=== PATIENT | male | born 1965 | race Caucasian/White ===

== ENCOUNTER 2025-02-15 06:30 | Observation (INO) | payer BC, SELFPAY ==
[2025-02-15 02:50] VITALS: BP 118/73; BP 135/77
[2025-02-15 03:04] VITALS: BMI 28.0
--- NOTE | 2025-02-15 03:14 | ED.GENMED ---
History of Present Illness
General
Chief Complaint: Abdominal Pain
Source: patient
Exam Limitations: none
Time Seen by Provider: 02/15/25 03:07
History of Present Illness
History of Present Illness:
See MDM
Past History
Past History
ED Past Medical History: None
ED Past Surgical History: Other (inguinal hernia)
Social History
Personal:
Living: with family
Employment: Employed
Phy Exam
Physical Exam
Physical Exam:
See MDM
Course
Orders/Labs/Results
Orders:
Orders
02/15/25 03:12
CT Abd/pelvis W Iv Cont Urgent
Comment:
Reason For Exam: mid abd pain, vomiting
0.9% Sodium Chloride 1000 ml [Nss] 1,000 ml IV BOLUS
Morphine Sulfate 4 mg IV NOW STA
02/15/25 03:13
Electrocardiogram (*1) Urgent
Reason for Study: Abdominal Pain
EKG- Treatment ONCE
02/15/25 03:20
Complete Blood Count/With Diff Urgent
Comprehensive Metabolic Panel Urgent
Lipase Urgent
Troponin I Urgent
02/15/25 03:28
Acetaminophen 1000MG/100Ml [Ofirmev] 1,000 mg in 100 ml IV ONCE
Acetaminophen IV Indication:: ED Narcotic Naive Pt-ONCE
02/15/25 03:29
Acetaminophen 1000MG/100Ml [Ofirmev] 1,000 mg in 100 ml .ROUTE .STK-MED
02/15/25 04:29
0.9% Sodium Chloride 1000 ml [Nss] 1,000 ml IV BOLUS
02/15/25 05:51
Morphine Sulfate 4 mg IV NOW STA
Abnormal Lab Results
02/15/25
03:20
RBC 4.22 L 10^6/uL
(4.70-6.10)
MCH 32.2 H pg
(27.0-31.0)
Absolute Lymphs (auto) 0.2 L 10^3/uL
(1.2-3.4)
Neutrophils % 93.2 H %
(42.2-75.2)
Lymphocytes % 3.5 L %
(20.5-51.1)
Monocytes % 1.3 L %
(1.7-9.3)
Glucose 106 H mg/dl
(70-99)
02/15/25 03:20
02/15/25 03:20
Vital Signs
Initial and Last Documented VS:
Initial Vital Signs
Temp Pulse Resp BP Pulse Ox
98.3 F 124 14 118/73 100
02/15/25 02:50 02/15/25 02:50 02/15/25 02:50 02/15/25 02:50 02/15/25 02:50
Last Documented Vital Signs
Temp Pulse Resp BP Pulse Ox
98.7 F 118 14 135/77 100
02/15/25 05:28 02/15/25 02:50 02/15/25 02:50 02/15/25 02:50 02/15/25 03:16
MDM/Problems Addressed
Differential Diagnosis Includes:
Note:
CHIEF COMPLAINT(S)
Abdominal pain, nausea, vomiting, diarrhea, and generalized weakness.
HISTORY OF PRESENT ILLNESS
The patient is a 59-year-old male who presents with abdominal pain, nausea, vomiting, diarrhea, and general malaise. The symptoms began two days ago after consuming two slices of pizza, which the patient noted contained garlic, typically a trigger
for his symptoms. He describes experiencing 'sulfury gas' the following morning, which did not fully resolve with simethicone use, a treatment previously approved by his doctor.
At approximately 5:00 PM yesterday, the patient notes a worsening of his gas pains and developed nausea and diarrhea both at work and at home. He reports several episodes of diarrhea, followed by shaking chills, alternating hot and cold sensations,
and severe vomiting. The patient states that oral intake has been difficult, mentioning that fluids are not staying down. He reported vomiting approximately five times.
The patient describes the pain as diffuse across the abdomen and radiating to his back, and he notes a chalky sensation on his tongue. He denies recent fever, though an evaluation for dehydration and electrolyte imbalance is warranted due to his
presentation.
PAST SURGICAL HISTORY
The patient reports a hernia repair approximately 20 years ago. He also underwent an endoscopy five years ago that revealed an adenoma, which was removed.
MEDICATIONS
The patient has been on omeprazole since August and notes it has generally been effective, although recent symptoms have been atypical.
PHYSICAL EXAM
General: Alert, no acute distress.
Skin: Warm, dry.
Head: Normocephalic, atraumatic
Neck: Appears supple, trachea midline.
Eyes, Ears, Nose, Mouth, and Throat: Oral mucosa dry
Cardiovascular: No signs of cyanosis. Tachycardia
Respiratory: Respirations are non-labored.
Abdomen: Non-distended. Generalized tenderness without rebound
Musculoskeletal: No deformities
Neurological: No focal neurological deficit observed.
Psychiatric: Anxious and tearful
PLAN
1. Administer intravenous fluids to address dehydration.
2. Administer pain management and antiemetic medications to control symptoms.
3. Conduct a CT scan of the abdomen to rule out any other underlying abnormalities.
4. Evaluate for the need for further gastroenterological consultation given history and current presentation.
DIFFERENTIAL DIAGNOSIS
The Differential Diagnosis includes, in no particular order and is not limited to:
1. Gastroenteritis
2. Small bowel obstruction
3. Peptic ulcer disease
4. Gallbladder disease
5. Pancreatitis
6. Gastric ulcer
7. Colitis
8. Irritable bowel syndrome (IBS)
9. Gastroesophageal reflux disease (GERD)
10. Diverticulitis
02/15/25 - 03:28
Patient reassessed and found to be febrile. Initiated Tylenol IV administration due to poor tolerance of oral intake.
My independent EKG interpretation is:
- Rhythm: Sinus tachycardia
- Heart Rate: 111 beats per minute
- [place]: Normal
- Time of EKG: Not specified
- Notable Intervals: Not specified
- Abnormalities Observed: None mentioned
SUMMARY OF ENCOUNTER
The patient, a 59-year-old male, was seen in the emergency department presenting with abdominal pain, nausea, vomiting, diarrhea, and generalized weakness. The symptoms started two days ago after consuming pizza with garlic, a known trigger for him.
Initial management included intravenous fluids, pain management, and antiemetic medications. A CT scan revealed enteritis. Despite treatment, the patient remained uncomfortable, tachycardic, and clinically dehydrated, with ongoing difficulty
tolerating oral intake.
DISPOSITION
Admit for intravenous fluids and pain control.
MANAGEMENT OF THE PATIENTS CARE WAS DISCUSSED WITH
Discussed the case with hospitalists for the admission plan.
INDEPENDENT REVIEW OF LABS AND INTERPRETATION OF TESTS
My independent CT scan interpretation is consistent with enteritis.
MEDICATION RECONCILIATION
Administered pain management and antiemetic medications. Provided intravenous fluids for dehydration.
MEDICAL DECISION MAKING
- Number and Complexity of Problems Addressed: Chronic conditions affecting care: history of hernia repair and adenoma removal. Differential diagnosis includes gastroenteritis, small bowel obstruction, peptic ulcer disease, gallbladder disease,
pancreatitis, gastric ulcer, colitis, irritable bowel syndrome (IBS), gastroesophageal reflux disease (GERD), and diverticulitis.
- Data:
*Category 1:*
Non-emergency department records reviewed, if applicable. External records from the patients prior medical history such as endoscopy details and current prescription of omeprazole were reviewed.
*Category 2:*
My independent interpretation of the CT scan shows findings consistent with enteritis.
*Category 3:*
Discussion of management with hospitalists for further care and admission.
- Risk:
Admission was deemed necessary due to the patients discomfort, tachycardia, clinical dehydration, and inability to tolerate oral intake safely; outpatient management was not appropriate.
DIAGNOSIS
Enteritis, ICD-10: K52.9
*Pulse Oximetry
SaO2: 100
Oxygen Mode of Delivery: Room air
Patient hypoxic: no
*Critical Care Note
Total Time (30-74mins, 75-104mins- exclusive of procedures): Not Applicable
ED Attending Note
-
Portions of this chart may have been created with voice recognition software.� Occasional wrong word or��sound alike� substitutions may have occurred due to the inherent limitations of voice recognition software.
Discharge Plan
Departure
Patient Disposition: Admit
Date of Disposition: 02/15/25
Time of Disposition: 05:55
Admit to: Med/Surg
Presentation/result/management discussed w/ accepting MD/DO: Hospitalist
Discharge Problem:
Enteritis, Dehydration
Referrals:
Sammy Álvarez MD [Family Provider, Family Practice]
Interventions
Interventions:
*Risk Screen - Suicide Last Done: 02/15/25 02:50
*General Assessment Last Done: 02/15/25 02:50
*Neglect/Abuse Screening Last Done: 02/15/25 02:50
MT-Drfaqu-Cygxjjxhwz Assessment Last Done: 02/15/25 03:37
Discharge Date and Time
Print Language: SWEDISH
[2025-02-15] MEDS: MORPHINE SULFATE 4 MG IV ×2 (03:19→05:59)
[2025-02-15] MEDS: NSS 1000 IV ×2 (03:19→04:46)
[2025-02-15 03:43] LABS: Hematocrit 39.0 % (39.0-52.0); Hemoglobin 13.6 g/dL (13.0-18.0); Mean Corp Hgb Conc. 34.9 g/dL (33.0-37.0); Mean Corpuscular Volume 92.4 fL (80.0-94.0); Nucleated Red Blood Cells % 0 % (-); Platelet Count 236 10^3/uL (130-400); Red Cell Dist. Width 13.0 % (11.5-14.5)
[2025-02-15] MEDS: OFIRMEV 100 IV (03:49)
[2025-02-15 03:59] LABS: ALT (SGPT) 26 U/L (0-50); AST (SGOT) 36 U/L (17-59); Albumin 4.8 g/dl (3.5-5.0); Alkaline Phosphatase 44 U/L (38-126); Blood Urea Nitrogen 19 mg/dl (9-20); Calcium 9.9 mg/dl (8.4-10.2); Carbon Dioxide 24 mmol/L (22-30); Chloride 106 mmol/L (98-107); Estimated Creatinine Clearance 95 ml/min; Glucose 106 mg/dl (70-99); Lipase 99 U/L (23-300); Potassium 3.6 mmol/L (3.5-5.1); Sodium 141 mmol/L (135-145); Total Protein 7.4 g/dl (6.3-8.2); eGFR > 60.00
[2025-02-15 04:10] LABS: Troponin I < 0.012 ng/ml
--- NOTE | 2025-02-15 05:58 | HPS.HSE ---
Addendum entered and electronically signed by Khadar Hernandez MD 02/23/25 18:59:
Allergies
Allergy/AdvReac Type Severity Reaction Status Date / Time
clavulanic acid Allergy Unknown Diahrrhea Verified 02/15/25 13:22
oxycodone Allergy itchy, rash Verified 02/15/25 13:22
environmental Allergy itchy Uncoded 02/15/25 13:22
eyes,
sneezing
Home Medications
alfuzosin 10 mg tablet,extended release 24 hr 10 mg PO DAILY Urinary Issue 02/15/25
omeprazole 20 mg tablet,delayed release 20 mg PO DAILY Gastrointestinal Issue 02/15/25
pravastatin 20 mg tablet 20 mg PO DAILY High Cholesterol 02/15/25
simethicone 80 mg chewable tablet 80 mg PO DAILYPRN PRN gas pains 02/15/25
therapeutic multivitamin 1 tab PO DAILY Supplement 02/15/25
tirzepatide (weight loss) 5 mg/0.5 mL subcutaneous pen injector (Zepbound) 5 mg SC SA endocrine 02/15/25
Original Note:
Family Physician
-
Family Physician: Sammy Álvarez
Chief Complaint
-
Abdominal pain
History of Present Illness
This is a 59-year-old with past medical history significant for GERD, hyperlipidemia, sleep apnea, status post hernia repair presenting to the emergency department with episode of abdominal pain, nausea, vomiting, diarrhea, and general malaise.
Patient reported to ER was in usual state of health yesterday. At the time he had some pizza with [place] for breakfast. He reports that since he has been on 7 pound he does have gas especially with gadolinium containing foods. He thought he was
having some gas pains and he took simethicone as prescribed by his PMD. However reports that he truly did not have any much improvement. Was able to go walk later on had some salad. His symptoms got worse and he upon returning home felt sick. He
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 He decided having frequent episodes of watery diarrhea. He said he went to the
bathroom several times and that by 2 PM his pain was unbearable. He felt that he was having chills. He tried to drink something and he developed nausea vomiting that was nonbloody and nonbilious.
He denies any known sick contacts. He has no new medication changes. He denies EtOH. He reports feeling intermittently hot and cold. He currently has severe vomiting and then came to the emergency department.
In the ED his blood pressure was 135/77, temperature was 90.7, pulse rate was 120 was satting 100% on room air. ECG showed sinus tachycardia at a rate of [address] or T wave changes. Troponin was negative. His CBC was completely
unremarkable. Electrolytes BUN and creatinine were normal. LFTs were normal. Lipase was normal.
CT of the abdomen pelvis shows dilated loops of small bowel without any transition points, diffuse thickening of the colon all of which are consistent with acute enteritis.
Medical History
Past Medical History
Past Medical History: Reports Other
Additional Past Medical History:
Hyperlipidemia
GERD
Sleep apnea on CPAP
Squamous cell carcinoma
Lyme disease
Past Surgical History: Reports Other
Additional Past Surgical History:
Status post left hernia repair
Left knee arthroscopy
Right knee arthroscopy with partial medial meniscectomy
Mohs surgery for squamous cell
Social History
Tobacco: Non-smoker
Alcohol: None
Drug: None
Personal:
Living: With Family
Family History
Family History: Not pertinent
Allergies / Home Medications
Allergies reflects when Allergies were last updated in [employer].
Home Medications with original date entered in [facility] [employer]
Allergy/Medication List:
Allergies
Allergy/AdvReac Type Severity Reaction Status Date / Time
clavulanic acid Allergy Unknown Diahrrhea Verified 02/15/25 02:49
oxycodone Allergy itchy, rash Verified 02/15/25 02:49
environmental Allergy itchy Uncoded 02/15/25 02:49
eyes,
sneezing
Review of Systems
-
Constitutional: Reports No Symptoms
EENT: Reports No Symptoms
Respiratory: Reports No Symptoms
Cardiac: Reports No Symptoms
Abdomen/GI: Reports Abdominal Pain, Nausea, Vomiting and Diarrhea
: Reports No Symptoms
Musculoskeletal: Reports No Symptoms
Skin: Reports No Symptoms
Neurological: Reports No Symptoms
Endocrine: Reports No Symptoms
Hematologic/Lymphatic: Reports No Symptoms
Psych: Reports No Symptoms
Physical Exam
Vital Signs
Vital Signs
Temp Pulse Resp BP Pulse Ox
98.7 F 118 14 135/77 100
02/15/25 05:28 02/15/25 02:50 02/15/25 02:50 02/15/25 02:50 02/15/25 03:16
Physical Exam
General: Well Developed, Well Nourished and No Apparent Distress
HEENT: NormoCephalic, Moist mucous membranes and Atraumatic
Respiratory: Clear
Cardiac: S1/S2 and Regular Rhythm; No Murmur or Rub
GI: Soft, Non Tender, Non Distended and Normal Bowel Sounds; No Organomegaly
Rectal: Deferred by Provider
Musculoskeletal: No Clubbing, No Cyanosis and No Edema
Skin: No Rash
Neuro: Nonfocal/grossly intact
Laboratory Results
-
02/15/25 03:20
02/15/25 03:20
Laboratory Results
Total Bilirubin 1.2 mg/dl (0.2-1.3) 02/15/25 03:20
AST 36 U/L (17-59) 02/15/25 03:20
ALT 26 U/L (0-50) 02/15/25 03:20
Alkaline Phosphatase 44 U/L (38-126) 02/15/25 03:20
Troponin I < 0.012 ng/ml 02/15/25 03:20
Lipase 99 U/L (23-300) 02/15/25 03:20
Data Reviewed
-
CT Scan: Report Reviewed by me
Medical Tests (Nuc Med, Echo, EKG etc): Image Personally Visualized and interpreted
Lab Data: Labs Reviewed by me
Impression/Plan
-
IMPRESSION:
59-year-old on Zepbound who has history of GERD, sleep apnea on CPAP presenting to the emergency department with approximately 1 day history of nausea vomiting diarrhea and abdominal pain.
His exam is fairly benign. His labs are unremarkable. CT shows enteritis. The clinical picture with onset of diarrhea abdominal pain then followed by nausea vomiting is consistent with a gastroenteritis. Likely of viral etiology. No recent
antibiotic use. No recent travels or sick contacts.
PLAN:
Acute gastroenteritis
- Admit to MedSurg observation
-Clear liquid diet for now
-Continue with pain control & antiemetics
- IV fluids with LR at 100 mL/h
-Continue with PPI, statin and BPH
- stool cx, stool WBCs and norovirus
CPAP HS
- use home device
DVT prophylaxis with SCDs
Code status - Full Code
[2025-02-15 06:00] VITALS: BP 110/63
--- NOTE | 2025-02-15 06:04 | EDRN ---
Patient into the restroom to have bowl movement and back in bed resting comfortably.
[2025-02-15 06:51] VITALS: BP 136/81
--- NOTE | 2025-02-15 08:57 | CM ---
Patient seen at bedside in ED. Patient is OBS and CM reviewed form and signed form placed on chart. Patient states that he lives with his in a 2 story home. Patient has an APAP and he states that he is driving and independent. Patient PCP is
Dr. Álvarez and he uses the pharmacy at [facility] in [place]. Patient stated that he just wants to feel better. Patient plan is home with no needs when medically appropriate. CM will continue to follow for discharge planning needs.
Plan; home with family supports.
[2025-02-15] MEDS: LR 1000 IV ×2 (10:58→20:35)
[2025-02-15] MEDS: TORADOL 10 MG IV ×2 (10:59→17:00)
[2025-02-15] MEDS: ZOFRAN 4 MG IV (11:00)
[2025-02-15] MEDS: FLOMAX 0.4 MG PO (11:00)
--- NOTE | 2025-02-15 11:00 | W.PN.HOSP.TC ---
Today's Communication/Plan
-
Clear liquid diet
IV hydration
Antiemetics.
Check lipase
Follow CBC/CMP in a.m.
Assessment / Plan
Assessment / Plan
Impression/plan:
59-year-old on Zepbound who has history of GERD, sleep apnea on CPAP presenting to the emergency department with approximately 1 day history of nausea vomiting diarrhea and abdominal pain.
His exam is fairly benign. His labs are unremarkable. CT shows enteritis. The clinical picture with onset of diarrhea abdominal pain then followed by nausea vomiting is consistent with a gastroenteritis. Likely of viral etiology. No recent
antibiotic use. No recent travels or sick contacts.
PLAN:
Acute gastroenteritis
Patient is on GLP-1 agonist for about 6 months with reported 50 pound weight loss and minimal side effects. The GLP-1 agonist is the primary culprit over this presentation.
- Admit to MedSurg observation
-Clear liquid diet for now
-Continue with pain control & antiemetics
- IV fluids with LR at 100 mL/h
-Continue with PPI, statin and BPH
- stool cx, stool WBCs and norovirus
- Check lipase
CPAP HS
- use home device
DVT prophylaxis with SCDs
Code status - Full Code
Anticipated Discharge: Within 24 hours
Subjective/Interval History
-
Date of Service: February 15, 2025
Objective Data
-
Labs:
Laboratory Results
02/15/25
03:20
WBC 6.2
Hgb 13.6
Hct 39.0
Plt Count 236
Sodium 141
Potassium 3.6
Chloride 106
Carbon Dioxide 24
BUN 19
Creatinine 0.8
Glucose 106 H
Calcium 9.9
Total Bilirubin 1.2
AST 36
ALT 26
Alkaline Phosphatase 44
Vital Signs:
Vital Signs
Temp Pulse Resp BP Pulse Ox
98.6 F 82 20 136/81 99
02/15/25 06:51 02/15/25 06:51 02/15/25 06:51 02/15/25 06:51 02/15/25 06:51
Physical Exam
-
General: Well Developed and No Apparent Distress
HEENT: Normocephalic, Atraumatic and Moist Mucous Membranes
Respiratory: Clear to Auscultation
Cardiac: Regular Rhythm and S1/S2; Negative Murmur, Rub or Gallop
GI: Soft, Nontender, Nondistended and Normal Bowel Sounds; Negative Organomegaly
Rectal: Deferred by Provider
Musculoskeletal: No Clubbing, No Cyanosis and No Edema
Skin: Negative Rash
Neuro: Nonfocal/Grossly Intact
[2025-02-15 11:11] VITALS: BP 111/64
--- NOTE | 2025-02-15 11:44 | EDRN ---
this RN called the receiving unit and notified them that paper report was going to be tubed up
[2025-02-15 12:00] VITALS: BMI 27.5
--- NOTE | 2025-02-15 12:00 | PTCARENOTE ---
patient arrived to floor from ER via stretcher. reports pain level 4/10 t/o abdomen, denies need for analgesia, reports diarrhea since yesterday at 1600. denies nausea at present, eager to try some clear liquids, independent from stretcher to bed,
vss, will continue to monitor.
[2025-02-15 15:56] VITALS: BP 95/53
[2025-02-15] MEDS: PRAVACHOL 20 MG PO (17:02)
--- NOTE | 2025-02-15 19:32 | PTCARENOTE ---
PRN Toradol effective for pain, will continue to monitor.
[2025-02-15 23:32] VITALS: BP 102/58
[2025-02-16] MEDS: LR 1000 IV ×2 (04:39→15:18)
[2025-02-16] MEDS: TORADOL 10 MG IV (04:48)
[2025-02-16 06:37] LABS: Hematocrit 33.5 % (39.0-52.0); Hemoglobin 11.4 g/dL (13.0-18.0); Mean Corp Hgb Conc. 34.0 g/dL (33.0-37.0); Mean Corpuscular Volume 95.2 fL (80.0-94.0); Nucleated Red Blood Cells % 0 % (-); Platelet Count 163 10^3/uL (130-400); Red Cell Dist. Width 13.5 % (11.5-14.5)
[2025-02-16 07:04] LABS: ALT (SGPT) 523 U/L (0-50); AST (SGOT) 350 U/L (17-59); Albumin 3.2 g/dl (3.5-5.0); Alkaline Phosphatase 36 U/L (38-126); Blood Urea Nitrogen 12 mg/dl (9-20); Calcium 8.4 mg/dl (8.4-10.2); Carbon Dioxide 25 mmol/L (22-30); Chloride 110 mmol/L (98-107); Estimated Creatinine Clearance 109 ml/min; Glucose 94 mg/dl (70-99); Potassium 3.8 mmol/L (3.5-5.1); Sodium 138 mmol/L (135-145); Total Protein 5.5 g/dl (6.3-8.2); eGFR > 60.00
[2025-02-16 07:35] VITALS: BP 111/68
[2025-02-16] MEDS: FLOMAX PO (09:02)
[2025-02-16 15:00] VITALS: BP 130/78
[2025-02-16] MEDS: PRAVACHOL 20 MG PO (17:24)
--- NOTE | 2025-02-16 17:25 | W.PN.HOSP.TC ---
Today's Communication/Plan
-
Advance to low residue diet
Workup for abnormal LFTs
Assessment / Plan
Assessment / Plan
Impression/plan:
59-year-old on Zepbound who has history of GERD, sleep apnea on CPAP presenting to the emergency department with approximately 1 day history of nausea vomiting diarrhea and abdominal pain.
His exam is fairly benign. His labs are unremarkable. CT shows enteritis. The clinical picture with onset of diarrhea abdominal pain then followed by nausea vomiting is consistent with a gastroenteritis. Likely of viral etiology. No recent
antibiotic use. No recent travels or sick contacts.
PLAN:
Acute gastroenteritis
Patient is on GLP-1 agonist for about 6 months with reported 50 pound weight loss and minimal side effects. The GLP-1 agonist is the primary culprit over this presentation.
C. difficile negative
Stool cultures negative to date.
Reports improvement since admission with resolution of nausea, although with persistent abdominal discomfort and gas.
Advance diet to low residual and monitor
Abnormal LFTs ALT 26�523/AST 36-350.
Possibly reactive in the settings of acute gastroenteritis
Normal lipase and bilirubin
No hepatobiliary abnormalities on CT scan.
Check viral hepatitis serologies
Abdominal ultrasound
Follow LFT in a.m.
CPAP HS
- use home device
DVT prophylaxis with SCDs
Code status - Full Code
Anticipated Discharge: 24 - 48 hours
Subjective/Interval History
-
Date of Service: February 16, 2025
Objective Data
-
Labs:
Laboratory Results
02/16/25
06:05
WBC 7.2
Hgb 11.4 L
Hct 33.5 L
Plt Count 163 D
Sodium 138
Potassium 3.8
Chloride 110 H
Carbon Dioxide 25
BUN 12
Creatinine 0.7
Glucose 94
Calcium 8.4 D
Total Bilirubin 0.7
AST 350 H
ALT 523 H*
Alkaline Phosphatase 36 L
Vital Signs:
Vital Signs
Temp Pulse Resp BP Pulse Ox
98.7 F 69 20 130/78 99
02/16/25 15:00 02/16/25 15:00 02/16/25 15:00 02/16/25 15:00 02/16/25 15:00
I&O
02/15/25 02/16/25 02/17/25
06:59 06:59 06:59
Intake Total 940 / 940 1605 / 1605
Balance 940 / 940 1605 / 1605
Physical Exam
-
General: Well Developed and No Apparent Distress
HEENT: Normocephalic, Atraumatic and Moist Mucous Membranes
Respiratory: Clear to Auscultation
Cardiac: Regular Rhythm and S1/S2; Negative Murmur, Rub or Gallop
GI: Soft, Nontender, Nondistended and Normal Bowel Sounds; Negative Organomegaly
Rectal: Deferred by Provider
Musculoskeletal: No Clubbing, No Cyanosis and No Edema
Skin: Negative Rash
Neuro: Nonfocal/Grossly Intact
[2025-02-16 19:22] LABS: Hepatitis B Surface Antigen Negative (Negative)
[2025-02-16 19:39] LABS: Hepatitis A Antibody, Total Negative (Negative); Hepatitis C Antibody Negative (Negative)
[2025-02-16 23:10] VITALS: BP 116/69
[2025-02-17 06:19] LABS: Hematocrit 36.9 % (39.0-52.0); Hemoglobin 12.3 g/dL (13.0-18.0); Mean Corp Hgb Conc. 33.3 g/dL (33.0-37.0); Mean Corpuscular Volume 93.9 fL (80.0-94.0); Nucleated Red Blood Cells % 0 % (-); Platelet Count 183 10^3/uL (130-400); Red Cell Dist. Width 13.2 % (11.5-14.5)
[2025-02-17 06:47] LABS: ALT (SGPT) 345 U/L (0-50); AST (SGOT) 131 U/L (17-59); Albumin 3.6 g/dl (3.5-5.0); Alkaline Phosphatase 36 U/L (38-126); Blood Urea Nitrogen 9 mg/dl (9-20); Calcium 9.1 mg/dl (8.4-10.2); Carbon Dioxide 26 mmol/L (22-30); Chloride 108 mmol/L (98-107); Estimated Creatinine Clearance 109 ml/min; Glucose 90 mg/dl (70-99); Potassium 3.9 mmol/L (3.5-5.1); Sodium 140 mmol/L (135-145); Total Protein 6.2 g/dl (6.3-8.2); eGFR > 60.00
[2025-02-17 07:41] VITALS: BP 109/70
[2025-02-17] MEDS: NON-FORMULARY ITEM 10 MG PO (08:37)
[2025-02-17] MEDS: FLOMAX PO (08:37)
[2025-02-17] MEDS: NON-FORMULARY ITEM 2 SPRAY NASAL (08:38)
[2025-02-17] MEDS: NON-FORMULARY ITEM 1 1 APPLIC TOPICAL (08:41)
--- NOTE | 2025-02-17 11:32 | W.PN.HOSP.TC ---
Addendum entered and electronically signed by Rashaun Ochoa MD 02/17/25 14:04:
[id number]
Original Note:
Today's Communication/Plan
-
F/u LFTs outpatient
Hold GLP1
f/u PCP outpatient
Colonoscopy as age appropriate outpatient
Assessment / Plan
Assessment / Plan
Impression/plan:
59-year-old on Zepbound who has history of GERD, sleep apnea on CPAP presenting to the emergency department with approximately 1 day history of nausea vomiting diarrhea and abdominal pain.
His exam is fairly benign. His labs are unremarkable. CT shows enteritis. The clinical picture with onset of diarrhea abdominal pain then followed by nausea vomiting is consistent with a gastroenteritis. Likely of viral etiology. No recent
antibiotic use. No recent travels or sick contacts.
PLAN:
Acute gastroenteritis
Patient is on GLP-1 agonist for about 6 months with reported 50 pound weight loss and minimal side effects. The GLP-1 agonist is the primary culprit over this presentation.
C. difficile negative
Stool cultures negative to date.
Reports improvement since admission with resolution of nausea, although with persistent abdominal discomfort and gas.
Tolerating LRD - symptoms resolved; F/u outpatient with PCP/GI for age appropriate Colonoscopy
Transaminitis
-suspect Viral
-trending down
-f/u outpatient
-Normal lipase and bilirubin
-No hepatobiliary abnormalities on CT scan.
-Hepatitis panel negative other than previous hepatitis vaccine
-Abd US - unremarkable for acute pathology
-F/u LFTs outpatient
#There are a few less than 1 cm low-density hepatic lesions, too small to characterize but statistically likely representing small cysts.
-F/u outpt if desired
CPAP HS
- use home device
DVT prophylaxis with SCDs
Code status - Full Code
More than 30 minutes spent in discharge including
Final examination of the patient
Summarizing hospital stay
Instructions for continuing care to all relevant caregivers
Preparation of discharge records, prescriptions, and referral forms
Total time spent (in minutes): 36
Anticipated Discharge: Today
Subjective/Interval History
-
Date of Service: February 17, 2025
symptoms greatly improved; tolerating LRD
Objective Data
-
Labs:
Laboratory Results
02/17/25
06:02
WBC 5.3
Hgb 12.3 L
Hct 36.9 L
Plt Count 183
Sodium 140
Potassium 3.9
Chloride 108 H
Carbon Dioxide 26
BUN 9
Creatinine 0.7
Glucose 90
Calcium 9.1
Total Bilirubin 0.7
AST 131 H
ALT 345 H
Alkaline Phosphatase 36 L
Vital Signs:
Vital Signs
Temp Pulse Resp BP Pulse Ox
98.2 F 68 16 109/70 100
02/17/25 07:41 02/17/25 07:41 02/17/25 07:41 02/17/25 07:41 02/17/25 07:41
I&O
02/16/25 02/17/25 02/18/25
06:59 06:59 06:59
Intake Total 940 / 940 2805 / 2805
Balance 940 / 940 2805 / 2805
Review of Systems
-
History Source: Patient
All other systems: Not reviewed unless documented
Physical Exam
-
General: Well Developed and No Apparent Distress
HEENT: Normocephalic, Atraumatic and Moist Mucous Membranes
Respiratory: Clear to Auscultation
Cardiac: Regular Rhythm and S1/S2; Negative Murmur, Rub or Gallop
GI: Soft, Nontender, Nondistended and Normal Bowel Sounds; Negative Organomegaly
Rectal: Deferred by Provider
Musculoskeletal: No Clubbing, No Cyanosis and No Edema
Skin: Negative Rash
Neuro: Nonfocal/Grossly Intact
Data Reviewed
-
CT Scan: Report Reviewed by me
Ultrasound: Report Reviewed by me
Labs: Labs Reviewed by me
--- NOTE | 2025-02-17 11:40 | W.DS.TRANS ---
DC Summary - Content Manager
-
Discharge Instructions:
Discharge Diagnosis/Procedures Acute gastroenteritis
Transaminitis
Diet Low Fiber
Activity As tolerated
Driving Restrictions Not until seen by your Dr
Blood Work cbc and CMP (including LFTs) in 1 week
Others Tests few less than 1 cm low-density hepatic lesions,
too small to characterize but statistically
likely representing small cysts. No further
imaging needed at this time; can defer to GI
outpatient for further monitoring small hepatic
lesions
Instructions:
Stand-Alone Forms:
Changes to Home Medications: Yes
Discharge Medications:
DC Medications w/original date entered in [facility]
alfuzosin 10 mg tablet,extended release 24 hr 10 mg PO DAILY Urinary Issue 02/15/25
omeprazole 20 mg tablet,delayed release 20 mg PO DAILY Gastrointestinal Issue 02/15/25
pravastatin 20 mg tablet 20 mg PO DAILY High Cholesterol 02/15/25
simethicone 80 mg chewable tablet 80 mg PO DAILYPRN PRN gas pains 02/15/25
therapeutic multivitamin 1 tab PO DAILY Supplement 02/15/25
tirzepatide (weight loss) 5 mg/0.5 mL subcutaneous pen injector (Zepbound) 5 mg SC SA endocrine 02/15/25
Held on 02/17/25. Instructions: Resume on 03/01/25. Hold until cleared by PCP
Home Medication Changes
tirzepatide (weight loss) 5 mg/0.5 mL subcutaneous pen injector (Zepbound) 5 mg SC SA endocrine 02/15/25
Held on 02/17/25. Instructions: Resume on 03/01/25. Hold until cleared by PCP
Pending Results: No
--- NOTE | 2025-02-17 11:44 | CM ---
CM following for discharge planning; No identified needs.
Plan: Pt is cleared for discharge to home today. will provide transport.
== END 2025-02-17 13:13 | disposition home or self-care (01) ==
LOC: 3 WEST ACU 06:30
PROVIDERS: Internal Medicine; ADMITTING PHYSICIAN Internal Medicine; ATTENDING PHYSICIAN Internal Medicine; EMERGENCY PHYSICIAN Student in an Organized Health Care Education/Training Program; FAMILY PHYSICIAN Family Medicine
DX: K52.9 Noninfective gastroenteritis and colitis, unspecified (principal); R10.9 Unspecified abdominal pain; R11.2 Nausea with vomiting, unspecified; R53.81 Other malaise; R14.1 Gas pain; E78.5 Hyperlipidemia, unspecified; K21.9 Gastro-esophageal reflux disease without esophagitis; R60.9 Edema, unspecified; G47.30 Sleep apnea, unspecified; R74.01 Elevation of levels of liver transaminase levels; R79.89 Other specified abnormal findings of blood chemistry; N40.0 Benign prostatic hyperplasia without lower urinary tract symptoms; R00.0 Tachycardia, unspecified; E86.0 Dehydration; Z88.1 Allergy status to other antibiotic agents; Z88.5 Allergy status to narcotic agent; Z79.899 Other long term (current) drug therapy; Z79.85 Long-term (current) use of injectable non-insulin antidiabetic drugs
CPT/HCPCS: 74177; 76700; 80053; 83690; 84484; 85025; 86706; 86708; 86803; 87045; 87046; 87324; 87340; 87427; 87449; 87798; 89055; 93005; 96361; 96374; 96375; 99285; G0378; Q9967